=== PATIENT | female | born 1990 | race Caucasian/White ===

== ENCOUNTER 2020-11-20 10:26 | Emergency (ER) | payer OTHER, SELFPAY | END 2020-11-20 12:30 | disposition home or self-care (01) | LOC: CSHERS 10:26 | DX: M25.532 Pain in left wrist (principal); R58 Hemorrhage, not elsewhere classified; E10.9 Type 1 diabetes mellitus without complications; F17.210 Nicotine dependence, cigarettes, uncomplicated; W01.0XXA Fall on same level from slipping, tripping and stumbling without subsequent striking against object, initial encounter; Y93.01 Activity, walking, marching and hiking ==

== ENCOUNTER 2022-07-10 09:31 | Emergency (ER) | payer OTHER | END 2022-07-10 11:51 | disposition home or self-care (01) | LOC: CSHERS 09:31 | DX: S80.02XA Contusion of left knee, initial encounter (principal); S93.402A Sprain of unspecified ligament of left ankle, initial encounter; E10.9 Type 1 diabetes mellitus without complications; F17.210 Nicotine dependence, cigarettes, uncomplicated; W01.0XXA Fall on same level from slipping, tripping and stumbling without subsequent striking against object, initial encounter ==